=== PATIENT | female | born 1990 | race Hispanic/Latino ===

== ENCOUNTER 2023-11-27 10:50 | Observation (INO) | payer MEDICAID ==
[~2023-11-27] VITALS: Ht 172.7 cm; Wt 68.0 kg
[2023-11-27 11:05] VITALS: BP 135/46; PULSE 83; RESP 20
[2023-11-27 11:41] LABS: APPEARANCE,URINE CLEAR (CLEAR); BILIRUBIN,URINE NEGATIVE (NEGATIVE); COLOR,URINE LIGHT-YELLOW (YELLOW); GLUCOSE, URINE (UA) NEGATIVE (NEGATIVE); KETONES,URINE 40 mg/dL (NEGATIVE); LEUKOCYTE ESTERASE ,URINE NEGATIVE Leu/uL (NEGATIVE); NITRATE,URINE NEGATIVE (NEGATIVE); OCCULT BLOOD,URINE NEGATIVE (NEGATIVE); PROTEIN,URINE NEGATIVE (NEGATIVE); UROBILINOGEN,URINE 0.2 mg/dL (0.2-1.0)
[2023-11-27 11:42] LABS: ADD UA MICROSCOPIC YES
[2023-11-27 11:50] LABS: MUCUS,URINE RARE LPF (None Seen); OTHER CASTS, URINE 1 /LPF (None Seen); RBC,URINE 0-1 /HPF (0-1); SQUAMOUS EPITHELIAL CELL,UR MOD /HPF (0-2); WBC,URINE 0-1 /HPF (0-1)
[2023-11-27 14:58] LABS: MEAN CORPUSCULAR HEMOGLOBIN 28.7 pg (27.0-33.0); MEAN CORPUSCULAR HGB CONC 33.5 g/dL (32.0-36.0); MEAN CORPUSCULAR VOLUME 85.6 fL (79-99); PLATELET COUNT (AUTO) 278 K/uL (130-400); RED BLOOD CELL COUNT(AUTO) 3.97 MIL/uL (4.00-5.50); RED CELL DISTRIBUTION WIDTH 13.9 % (11.0-15.5); WHITE BLOOD COUNT (AUTO) 22.6 K/uL (4.8-10.8)
[2023-11-27 15:07] LABS: AMYLASE 69 U/L (25-115); BASOPHILS # (AUTO) 0.05 K/uL (0.00-0.20); BASOPHILS % (AUTO) 0.2 % (0.0-5.0); IMMATURE GRANULOCYTE ABSOLUTE 0.14 K/uL (0-1); LYMPHOCYTES # (AUTO) 0.7 K/uL (1.0-4.8); LYMPHOCYTES % (AUTO) 3.2 % (21.0-51.0); MONOCYTES # (AUTO) 1.1 K/uL (0.1-1.0); MONOCYTES % (AUTO) 4.7 % (3.0-13.0); NEUTROPHILS # (AUTO) 20.6 K/uL (1.8-7.7); NEUTROPHILS % (AUTO) 91.3 % (40.0-77.0)
[2023-11-27] MEDS: AMPICILLIN 2GM+NS 100ML IV SCH (15:23)
[2023-11-27] MEDS: PROMETHAZINE HCL 25 MG/ML 1ML AMPULE IM PRN (16:56)
[2023-11-27] MEDS: MEPERIDINE-PF 50 MG/ML SYG IVP PRN (16:57)
[2023-11-27] MEDS: LACTATED RINGERS 1000ML 1,000 ML IV SCH (16:59)
== END 2023-11-27 19:30 | disposition short-term general hospital (02) ==
LOC: EDH 10:50 → LDH 10:51
PROVIDERS: ADMIT Obstetrics & Gynecology; ATTEND Obstetrics & Gynecology
DX: O26.892 Other specified pregnancy related conditions, second trimester (principal); R10.9 Unspecified abdominal pain; Z3A.21 21 weeks gestation of pregnancy
CPT/HCPCS: 96372; 96361 ×2; 96365; 96375; 82150; 83690; 85025; 81001; 36415; 76705; G0378 ×8; G0379; J2550; J2175; J0290; J7120; 96360